=== PATIENT | female | born 1995 | race Caucasian/White ===

== ENCOUNTER 2019-04-11 01:46 | Emergency (ER) | payer MEDICAID, OTHER ==
[~2019-04-11] VITALS: Ht 170.2 cm; Wt 772.5 kg
--- NOTE | 2019-04-11 02:15 | NUR ---
JAYRO FROM [facility]. AAOX4. NAD, BREATHING IS EVEN AND UNLABORED. AMBULATORY. C/O RECTAL BLEEDING WHICH WAS NOTED 3 DAYS AGO WHICH STARTED AN ABDOMINAL 1 WEEK AGO. PT REPORT BLEEDING PROGRESSIVELY GETTING WORST EVERYDAY AND DESCRIBES IF SHE WAS HAVING HER PERIOD. ALSO COMPLAINING OF LLQ ABDIMINAL PAIN X 3DAYS AGO. PT REPORTS NAUSEA NO VOMITING NOTED. NO DIARRHEA. TO ER BED 3. MD AT BEDSIDE WITH CHARGE NURSE FOR EVAL. AWAITING ORDERS
[2019-04-11] MEDS ORDERED: HYDROMORPHONE 1 MG/1 ML DISP.SYRIN ONE ×2 (02:39→04:07)
[2019-04-11] MEDS ORDERED: ONDANSETRON HCL/PF 4 MG/2 ML VIAL ONE (02:39)
[2019-04-11] MEDS ORDERED: IOHEXOL-300 100 ML VIAL IV ONE ×2 (02:43→03:19)
[2019-04-11] MEDS ORDERED: CT SWABBABLE VALVE TRANS SET 1 EA INFUS.SET MC ONE ×2 (02:43→03:19)
[2019-04-11] MEDS ORDERED: IV NS 0.9% 0 ML IV ONE (02:43)
--- NOTE | 2019-04-11 02:45 | NUR ---
IV LINE OBTAINED ON LFA 20G. BLOOD DRAWN AND GIVEN TO TECH AT BEDSIDE
[2019-04-11 02:53] LABS: BASOPHILS # (AUTO) 0.1 /CMM (0.0-0.2); BASOPHILS % (AUTO) 0.6 % (0.0-2.0); EOSINOPHILS % (AUTO) 1.1 % (0.0-6.0); HEMATOCRIT 39 % (33-45); HEMOGLOBIN 13.2 g/dL (11.5-14.8); LYMPHOCYTES # (AUTO) 2.8 /CMM (0.8-4.8); LYMPHOCYTES % (AUTO) 30.9 % (20.0-44.0); MEAN CORPUSCULAR HGB CONC 34 g/dl (31.0-36.0); MEAN CORPUSCULAR VOLUME 86 fL (82-100); MONOCYTES # (AUTO) 0.5 /CMM (0.1-1.30); MONOCYTES % (AUTO) 5.1 % (2.0-12.0); NEUTROPHILS # (AUTO) 5.7 /CMM (1.8-8.9); NEUTROPHILS % (AUTO) 62.3 % (43.0-81.0); PLATELET COUNT (AUTO) 370 /CMM (150-450); RED BLOOD CELL COUNT(AUTO) 4.53 MIL/uL (4.0-5.2); WHITE BLOOD COUNT (AUTO) 9.2 K/uL (4.3-11.0)
[2019-04-11] MEDS ORDERED: HYDROMORPHONE INJ 2 MG/ML DISP.SYRIN IV ONE (03:00)
[2019-04-11] MEDS ORDERED: ONDANSETRON HCL/PF 4 MG/2 ML VIAL IVP ONE (03:00)
[2019-04-11 03:01] LABS: CALCIUM, SERUM 9.2 mg/dL (8.5-10.1); CREATININE 0.9 mg/dL (0.6-1.3)
[2019-04-11 03:06] LABS: ALBUMIN 3.6 g/dL (3.4-5.0); BILIRUBIN,TOTAL 0.2 mg/dL (0.2-1.0); TOTAL PROTEIN, SERUM 7.7 g/dL (6.4-8.2)
[2019-04-11] MEDS ORDERED: IV NS 0.9% 250 ML IV ONE (03:19)
--- NOTE | 2019-04-11 03:28 | NUR ---
PT AMBULATED TO BATHROOM W/ LIMP. URINE SPECIMEN COLLECTED, SENT OT LAB
--- NOTE | 2019-04-11 03:47 | NUR ---
PT GOING TO CT ON [facility]
--- NOTE | 2019-04-11 03:56 | NUR ---
BACK FROM CT
--- NOTE | 2019-04-11 04:09 | NUR ---
PT REPORTS THAT PAIN IS BACK RATE 7/10 SAME WHEN SHE CAME IN. PT GOT RELIEVED FROM 1ST DOSE. MD MADE AWARE. RECEIVED VERBAL ORDER TO GIVE ANOTHER DILAUDID 0.5MG IV X1.
[2019-04-11] MEDS ORDERED: HYDROMORPHONE 1 MG/1 ML DISP.SYRIN IV ONE (05:30)
--- NOTE | 2019-04-11 06:02 | NUR ---
Patient discharged to home in stable condition. Written and verbal after care instructions given. Patient verbalizes understanding of instruction.IV removed. Catheter intact and site benign. Pressure and 4x4 applied to site. No bleeding noted. Pt ambulatory with a steady gait
[2019-04-11 06:04] VITALS: BP 129/81
== END 2019-04-11 06:05 | disposition home or self-care (01) ==
LOC: ER 01:52
DX: K92.2 Gastrointestinal hemorrhage, unspecified (principal); N83.202 Unspecified ovarian cyst, left side; F10.10 Alcohol abuse, uncomplicated; F17.200 Nicotine dependence, unspecified, uncomplicated; Y90.9 Presence of alcohol in blood, level not specified
CPT/HCPCS: 36415; 74177; 80048; 80076; 83690; 84703; 85025; 85730; 96374; 96375; 96376; 99284; J1170 ×2; J2405; J7050; Q9967

== ENCOUNTER 2020-08-14 15:11 | Emergency (ER) | payer MEDICAID ==
[~2020-08-14] VITALS: Ht 170.2 cm; Wt 90.7 kg
--- NOTE | 2020-08-14 15:14 | NUR ---
ER BED 4 PT CAME IN C/O OF ABD PAIN 04/16 AND DIARRHEA SINCE 08/07/20. PT STATED SHE LOST SOME WEIGHT FROM HAVING DIARRHEA AND STATES THAT HER ABD STARTS HURTING 08/16 WHEN SHE EATS. VS CHECKED. AWAITING MD PERKINS
--- NOTE | 2020-08-14 15:30 | NUR ---
PT STATED SHES READY TO PEE. URINE COLLECTED.
--- NOTE | 2020-08-14 15:45 | NUR ---
IV INSERTED ON L AC G20. INTACT AND PATENT AND FLUSHING WELL.
[2020-08-14] MEDS ORDERED: MORPHINE SULFATE INJ 4 MG/ML DISP.SYRIN ONE (16:15)
[2020-08-14] MEDS ORDERED: ONDANSETRON HCL/PF 4 MG/2 ML VIAL ONE (16:16)
[2020-08-14] MEDS: MORPHINE SULFATE INJ 2 MG/ML DISP.SYRIN IV ONE (16:20)
[2020-08-14] MEDS: ONDANSETRON HCL/PF 4 MG/2 ML VIAL IVP ONE (16:20)
[2020-08-14] MEDS: IV NS 0.9% 1,000 ML BAG IV ONE (16:20)
[2020-08-14 16:27] LABS: APPEARANCE,URINE Clear (CLEAR); BILIRUBIN,URINE SMALL (NEGATIVE); BLOOD, URINE Trace-intact Ery/uL (NEGATIVE); COLOR,URINE Yellow (YELLOW); KETONES,URINE 40 (NEGATIVE); LEUKOCYTE ESTERASE ,URINE Negative (NEGATIVE); NITRITE, URINE Negative (NEGATIVE); PH,URINE 6.5 (5.0-8.0); PROTEIN,URINE Negative (NEGATIVE); UGLUCOSE Negative (NEGATIVE); UROBILINOGEN,URINE 0.2 EU/dL (0.2)
[2020-08-14 16:41] LABS: CALCIUM, SERUM 9.4 mg/dL (8.5-10.1); CREATININE 0.8 mg/dL (0.6-1.3); POTASSIUM 3.8 mmol/L (3.5-5.1)
[2020-08-14 16:43] LABS: BASOPHILS # (AUTO) 0.1 /CMM (0.0-0.2); BASOPHILS % (AUTO) 1.1 % (0.0-2.0); EOSINOPHILS % (AUTO) 2.1 % (0.0-6.0); HEMATOCRIT 41 % (33-45); HEMOGLOBIN 13.6 g/dL (11.5-14.8); LYMPHOCYTES # (AUTO) 2.2 /CMM (0.8-4.8); LYMPHOCYTES % (AUTO) 22.1 % (20.0-44.0); MEAN CORPUSCULAR HGB CONC 33 g/dl (31.0-36.0); MEAN CORPUSCULAR VOLUME 85 fL (82-100); MONOCYTES # (AUTO) 0.6 /CMM (0.1-1.30); MONOCYTES % (AUTO) 5.7 % (2.0-12.0); NEUTROPHILS # (AUTO) 6.9 /CMM (1.8-8.9); PLATELET COUNT (AUTO) 431 /CMM (150-450); RED BLOOD CELL COUNT(AUTO) 4.83 MIL/uL (4.0-5.2); WHITE BLOOD COUNT (AUTO) 10.1 K/uL (4.3-11.0)
[2020-08-14 16:46] LABS: ALBUMIN 3.6 g/dL (3.4-5.0); BILIRUBIN,DIRECT 0.1 mg/dL (0.0-0.2); BILIRUBIN,TOTAL 0.3 mg/dL (0.2-1.0)
[2020-08-14 17:01] LABS: BACTERIA,URINE None seen /HPF (None Seen); SQUAMOUS EPITHELIAL CELL,UR Many /HPF (None Seen); WBC,URINE 0-2 /HPF (0-3)
--- NOTE | 2020-08-14 17:27 | NUR ---
IV FLUIDS STILL RUNNING CURRENTLY.
--- NOTE | 2020-08-14 17:35 | NUR ---
D/C Patient discharged to home in stable condition. Written and verbal after care instructions given. Patient verbalizes understanding of instruction. IV removed. Catheter intact and site benign. Pressure and 4x4 applied to site. No bleeding noted.
[2020-08-14 17:36] VITALS: BP 120/81
== END 2020-08-14 17:36 | disposition home or self-care (01) ==
LOC: ER 15:15
DX: R11.2 Nausea with vomiting, unspecified (principal); R19.7 Diarrhea, unspecified; R10.30 Lower abdominal pain, unspecified
CPT/HCPCS: 36415; 74176; 80048; 80076; 81001; 83690; 84703; 85025; 96361; 96374; 96375; 99284; J2270; J2405; 81000-TC

== ENCOUNTER 2020-09-11 11:23 | Emergency (ER) | payer MEDICAID ==
[~2020-09-11] VITALS: Ht 170.2 cm; Wt 85.7 kg
--- NOTE | 2020-09-11 11:30 | NUR ---
"Abdominal Pain x1mo was seen here and told infected lymph nodes BUT not better. +N/V/Change in BM/lost weight/not able to tolerate food" Patient a/ox4, breathing even and unlabored, no sob noted, needs attended.
[2020-09-11 12:05] LABS: APPEARANCE,URINE Clear (CLEAR); BILIRUBIN,URINE Negative (NEGATIVE); BLOOD, URINE Negative Ery/uL (NEGATIVE); COLOR,URINE Yellow (YELLOW); LEUKOCYTE ESTERASE ,URINE Negative (NEGATIVE); NITRITE, URINE Negative (NEGATIVE); PROTEIN,URINE Negative (NEGATIVE); UGLUCOSE Negative (NEGATIVE); UROBILINOGEN,URINE 0.2 EU/dL (0.2)
[2020-09-11 12:07] LABS: BASOPHILS % (AUTO) 0.6 % (0.0-2.0); EOSINOPHILS % (AUTO) 2.2 % (0.0-6.0); HEMATOCRIT 39 % (33-45); HEMOGLOBIN 12.8 g/dL (11.5-14.8); LYMPHOCYTES # (AUTO) 1.9 /CMM (0.8-4.8); LYMPHOCYTES % (AUTO) 25.8 % (20.0-44.0); MEAN CORPUSCULAR HGB CONC 33 g/dl (31.0-36.0); MEAN CORPUSCULAR VOLUME 86 fL (82-100); MONOCYTES # (AUTO) 0.4 /CMM (0.1-1.30); NEUTROPHILS # (AUTO) 4.9 /CMM (1.8-8.9); NEUTROPHILS % (AUTO) 66.4 % (43.0-81.0); PLATELET COUNT (AUTO) 342 /CMM (150-450); RED BLOOD CELL COUNT(AUTO) 4.54 MIL/uL (4.0-5.2); WHITE BLOOD COUNT (AUTO) 7.3 K/uL (4.3-11.0)
[2020-09-11 12:19] LABS: ALBUMIN 3.3 g/dL (3.4-5.0); BILIRUBIN,DIRECT 0.1 mg/dL (0.0-0.2); BILIRUBIN,TOTAL 0.2 mg/dL (0.2-1.0); CALCIUM, SERUM 9.3 mg/dL (8.5-10.1); CREATININE 0.7 mg/dL (0.6-1.3); POTASSIUM 3.4 mmol/L (3.5-5.1); TOTAL PROTEIN, SERUM 7.3 g/dL (6.4-8.2)
[2020-09-11] MEDS ORDERED: KETOROLAC TROMETHAMINE INJ 60 MG/2 ML VIAL IM ONE (13:00)
[2020-09-11] MEDS ORDERED: KETOROLAC TROMETHAMINE INJ 30 MG/ML VIAL ONE (13:09)
--- NOTE | 2020-09-11 13:23 | NUR ---
Patient discharged to home in stable condition. Written and verbal after care instructions given. Patient verbalizes understanding of instruction.
[2020-09-11 13:24] VITALS: BP 110/76
== END 2020-09-11 13:24 | disposition home or self-care (01) ==
LOC: ER 11:27
DX: R10.84 Generalized abdominal pain (principal); R10.32 Left lower quadrant pain; F17.200 Nicotine dependence, unspecified, uncomplicated
CPT/HCPCS: 36415; 80048; 80076; 81001; 83690; 84703; 85025; 96372; 99283; J1885; 81000-TC

== ENCOUNTER → 2021-08-14 | Emergency (ER) | payer MEDICAID ==
[~2021-08-14] VITALS: Ht 170.2 cm; Wt 77.1 kg
[~2021-08-14] MED LIST: IV LR 1000 ML 1,000 ML IV ONE; IV NS 0.9% 500 ML BAG IV ONE; LORAZEPAM INJ 2 MG/ML VIAL IV ONE; LORAZEPAM INJ 2 MG/ML VIAL ONE; ONDANSETRON HCL/PF 4 MG/2 ML VIAL IVP ONE; ONDANSETRON HCL/PF 4 MG/2 ML VIAL ONE; PIPERACILLIN /TAZOBACTAM 3.375 G in IV D5W 50 ML IV ONE
--- NOTE | 2021-08-14 17:21 | NUR ---
DR CASTILLO ASSESSING THE PATIENT.
--- NOTE | 2021-08-14 17:30 | NUR ---
Patient came in to the er c/o "Started having pain chest/epigastric/nausea/vomiting around 1pm". On room air, breathing evenly and unlabored. Connected to the monitor and pulse ox. kept comfortable, will continue lety onitor accordingly.
[2021-08-14 18:08] LABS: BASOPHILS # (AUTO) 0.1 K/uL (0.0-0.2); BASOPHILS % (AUTO) 0.5 % (0.0-2.0); EOSINOPHILS % (AUTO) 0.5 % (0.0-6.0); HEMATOCRIT 41 % (33-45); HEMOGLOBIN 13.5 g/dL (11.5-14.8); LYMPHOCYTES # (AUTO) 1.7 K/uL (0.8-4.8); LYMPHOCYTES % (AUTO) 11.5 % (20.0-44.0); MEAN CORPUSCULAR HGB CONC 33 g/dl (31.0-36.0); MEAN CORPUSCULAR VOLUME 88 fL (82-100); MONOCYTES # (AUTO) 0.5 K/uL (0.1-1.30); MONOCYTES % (AUTO) 3.6 % (2.0-12.0); NEUTROPHILS # (AUTO) 12.6 K/uL (1.8-8.9); NEUTROPHILS % (AUTO) 83.9 % (43.0-81.0); RED BLOOD CELL COUNT(AUTO) 4.65 MIL/uL (4.0-5.2)
--- NOTE | 2021-08-14 18:21 | NUR ---
urine collected and sent to lab.
[2021-08-14 18:35] LABS: CALCIUM, SERUM 9.2 mg/dL (8.5-10.1); CARBON DIOXIDE 25 mmol/L (21-32); CHLORIDE 102 mmol/L (98-107); CREATININE 1.1 mg/dL (0.6-1.3); GLUCOSE 125 mg/dL (74-106); POTASSIUM 3.6 mmol/L (3.5-5.1); SODIUM SERUM 137 mmol/L (136-145); UREA NITROGEN, BLOOD 13 mg/dL (7-18)
[2021-08-14 18:48] LABS: ALANINE AMINOTRANSFERASE 142 U/L (12-78); ALBUMIN 3.6 g/dL (3.4-5.0); ALKALINE PHOSPHATASE 97 U/L (46-116); ASPARTATE AMINOTRANSFERASE 202 U/L (15-37); BILIRUBIN,DIRECT 0.1 mg/dL (0.0-0.2); BILIRUBIN,TOTAL 0.3 mg/dL (0.2-1.0); TOTAL PROTEIN, SERUM 7.7 g/dL (6.4-8.2)
[2021-08-14 19:02] LABS: BILIRUBIN,URINE NEGATIVE (NEGATIVE); COLOR,URINE YELLOW (YELLOW); LEUKOCYTE ESTERASE ,URINE NEGATIVE (NEGATIVE); NITRITE, URINE NEGATIVE (NEGATIVE); PH,URINE 6.5 (5.0-8.0); PROTEIN,URINE NEGATIVE (NEGATIVE); UGLUCOSE NEGATIVE (NEGATIVE)
[2021-08-14 19:21] LABS: PLATELET COUNT (AUTO) 411 K/uL (150-450)
[2021-08-14 19:24] LABS: BACTERIA,URINE 2+ /HPF (None Seen); RBC,URINE 0-2 /HPF (0-2)
--- NOTE | 2021-08-14 21:34 | NUR ---
PATIENT DISCAHRGED IN STABLE CONDITION
[2021-08-14 21:40] VITALS: BP 128/79
== END | disposition home or self-care (01) ==
LOC: ER 17:14
DX: R10.9 Unspecified abdominal pain (principal); R07.89 Other chest pain; R06.02 Shortness of breath; F41.9 Anxiety disorder, unspecified; F12.90 Cannabis use, unspecified, uncomplicated
CPT/HCPCS: 36415; 71045; 76705; 80048; 80076; 81001; 83605; 83690; 84484; 84703; 85025; 87040 ×2; 87086; 93005 ×3; 96365; 96375; 99285; J2060; J2405; J2543; J7040; J7060; J7120 ×2

== ENCOUNTER 2021-08-15 10:39 | Emergency (ER) | payer MEDICAID ==
[~2021-08-15] VITALS: Ht 170.2 cm; Wt 81.2 kg
[2021-08-15 10:48] VITALS: BP 110/74
--- NOTE | 2021-08-15 10:50 | NUR ---
PT BIB SELF FOR RE-EVAL,SEEN YESTERDAY FOR ABDOMINAL PAIN/GALLSTONE. PT VERBALIZED PAIN IMPROVED. STABLE ON ROOM AIR. DENIES PAIN AT THIS TIME. Alert and oriented. kept comfortable in bed. safety measures in place
--- NOTE | 2021-08-15 11:09 | NUR ---
Patient discharged to home in stable condition. Written and verbal after care instructions given. Patient verbalizes understanding of instruction.
== END 2021-08-15 11:09 | disposition home or self-care (01) ==
LOC: ER 10:44
DX: R10.9 Unspecified abdominal pain (principal); F41.9 Anxiety disorder, unspecified; F12.90 Cannabis use, unspecified, uncomplicated

== ENCOUNTER 2021-09-24 19:48 | Emergency (ER) | payer MEDICAID ==
[~2021-09-24] VITALS: Ht 170.2 cm; Wt 76.2 kg
--- NOTE | 2021-09-24 20:32 | NUR ---
PATIENT TO ER BED 6 BIBSELF C/O MID EPIGASTRIC PAIN THAT RADIATES TO THE BACK HAS BEEN CHRONIC BUT WORSENING TODAY. PATIENT STATES THAT THE PAIN OCCURS WHEN SHE EATS FOOD. SHE USUALLY TAKES TYLENOL AT HOME, TAKES A BATH, AND GOES TO SLEEP FOR PAIN. PT ALERT AND ORIENTED X4. DENIES SHORTNESS OF BREATH. CONNECTED TO THE MONITOR.
--- NOTE | 2021-09-24 20:44 | NUR ---
ULTRASOUND AT BEDSIDE.
--- NOTE | 2021-09-24 20:50 | NUR ---
BLOOD COLLECTED AND SENT TO THE LAB.
[2021-09-24] MEDS ORDERED: MORPHINE SULFATE INJ 2 MG/ML DISP.SYRIN IV ONE (21:00)
[2021-09-24] MEDS ORDERED: IV NS 0.9% 1,000 ML BAG IV ONE (21:00)
[2021-09-24] MEDS ORDERED: ONDANSETRON HCL/PF 4 MG/2 ML VIAL IVP ONE (21:00)
[2021-09-24] MEDS ORDERED: ONDANSETRON HCL/PF 4 MG/2 ML VIAL ONE (21:07)
[2021-09-24] MEDS ORDERED: MORPHINE SULFATE INJ 4 MG/ML DISP.SYRIN ONE (21:07)
[2021-09-24 21:28] LABS: BASOPHILS % (AUTO) 0.3 % (0.0-2.0); EOSINOPHILS % (AUTO) 0.6 % (0.0-6.0); HEMATOCRIT 40 % (33-45); HEMOGLOBIN 13.4 g/dL (11.5-14.8); LYMPHOCYTES # (AUTO) 1.8 K/uL (0.8-4.8); LYMPHOCYTES % (AUTO) 12.3 % (20.0-44.0); MEAN CORPUSCULAR HGB CONC 33 g/dl (31.0-36.0); MEAN CORPUSCULAR VOLUME 87 fL (82-100); MONOCYTES # (AUTO) 0.6 K/uL (0.1-1.30); MONOCYTES % (AUTO) 4.2 % (2.0-12.0); NEUTROPHILS # (AUTO) 12.2 K/uL (1.8-8.9); NEUTROPHILS % (AUTO) 82.6 % (43.0-81.0); PLATELET COUNT (AUTO) 469 K/uL (150-450); RED BLOOD CELL COUNT(AUTO) 4.63 MIL/uL (4.0-5.2); WHITE BLOOD COUNT (AUTO) 14.8 K/uL (4.3-11.0)
[2021-09-24 21:35] LABS: BILIRUBIN,URINE NEGATIVE (NEGATIVE); COLOR,URINE YELLOW (YELLOW); LEUKOCYTE ESTERASE ,URINE NEGATIVE (NEGATIVE); NITRITE, URINE NEGATIVE (NEGATIVE); PH,URINE 6.5 (5.0-8.0); PROTEIN,URINE NEGATIVE (NEGATIVE); UGLUCOSE NEGATIVE (NEGATIVE); UROBILINOGEN,URINE 0.2 EU/dL (0.2)
[2021-09-24 21:44] LABS: RBC,URINE 0-2 /HPF (0-2); WBC,URINE 0-2 /HPF (0-3)
[2021-09-24 21:45] LABS: BACTERIA,URINE 1+ /HPF (None Seen); MUCUS,URINE Many /LPF (None Seen); SQUAMOUS EPITHELIAL CELL,UR 0-2 /HPF (None Seen)
[2021-09-24 21:58] LABS: ALBUMIN 3.5 g/dL (3.4-5.0); BILIRUBIN,DIRECT 0.2 mg/dL (0.0-0.2); BILIRUBIN,TOTAL 0.3 mg/dL (0.2-1.0); CREATININE 1.1 mg/dL (0.6-1.3); POTASSIUM 3.5 mmol/L (3.5-5.1); TOTAL PROTEIN, SERUM 8.1 g/dL (6.4-8.2)
--- NOTE | 2021-09-24 22:50 | NUR ---
PATIENT IS PO CHALLENGED PER MD'S VERBAL ORDER.
--- NOTE | 2021-09-24 23:07 | NUR ---
PATIENT TOLERATES WATER. MD NOTIFIED. OKAY TO DISCHARGE PATIENT.
--- NOTE | 2021-09-24 23:16 | NUR ---
Patient discharged to home in stable condition. Written and verbal after care instructions given. Patient verbalizes understanding of instruction.
--- NOTE | 2021-09-24 23:16 | NUR ---
IV removed. Catheter intact and site benign. Pressure and 4x4 applied to site. No bleeding noted.
--- NOTE | 2021-09-24 23:19 | NUR ---
PATIENT IS PICKED UP BY FRIEND.
[2021-09-24 23:20] VITALS: BP 109/71
== END 2021-09-24 23:21 | disposition home or self-care (01) ==
LOC: ER 20:02
DX: K80.20 Calculus of gallbladder without cholecystitis without obstruction (principal); R10.13 Epigastric pain; R11.2 Nausea with vomiting, unspecified; F12.90 Cannabis use, unspecified, uncomplicated
CPT/HCPCS: 36415; 76705; 80048; 80076; 81001; 83690; 84703; 85025; 96361; 96374; 96375; 99284; J2270; J2405; J7030

== ENCOUNTER 2022-01-31 12:45 | Emergency (ER) | payer MEDICAID ==
[~2022-01-31] VITALS: Ht 170.2 cm; Wt 74.4 kg
--- NOTE | 2022-01-31 12:59 | NUR ---
TO ER BED 9. BIB SELF C/O L SIDED ABDOMINAL PAIN X 2 DAYS GALL BLADDER REMOVED JANUARY 05 BY AT [facility], HAD CHECK UP ON JANUARY 20 AND HAD NO PAIN. INCISION SITE IS HEALED. PT STATING THAT HER PAIN IS CURRENTLY IS 6/10 AND WHEN SHE MOVES IS 10/10.
--- NOTE | 2022-01-31 13:10 | NUR ---
IV ESTABLIHSED R AC 20G. LABS DRAWN AND COLLECTED. CONVERTED TO SALINE LOCK.
--- NOTE | 2022-01-31 13:14 | NUR ---
URINE COLLECTED AND SENT
[2022-01-31] MEDS: IV NS 0.9% 1,000 ML BAG IV ONE (13:21)
[2022-01-31 13:34] LABS: BASOPHILS % (AUTO) 0.4 % (0.0-2.0); EOSINOPHILS % (AUTO) 1.8 % (0.0-6.0); HEMATOCRIT 41 % (33-45); HEMOGLOBIN 13.3 g/dL (11.5-14.8); LYMPHOCYTES # (AUTO) 2.1 K/uL (0.8-4.8); LYMPHOCYTES % (AUTO) 28.4 % (20.0-44.0); MEAN CORPUSCULAR HGB CONC 32 g/dl (31.0-36.0); MEAN CORPUSCULAR VOLUME 87 fL (82-100); MONOCYTES # (AUTO) 0.4 K/uL (0.1-1.30); MONOCYTES % (AUTO) 5.4 % (2.0-12.0); NEUTROPHILS # (AUTO) 4.8 K/uL (1.8-8.9); PLATELET COUNT (AUTO) 356 K/uL (150-450); RED BLOOD CELL COUNT(AUTO) 4.75 MIL/uL (4.0-5.2); WHITE BLOOD COUNT (AUTO) 7.5 K/uL (4.3-11.0)
[2022-01-31 13:36] LABS: BILIRUBIN,URINE NEGATIVE (NEGATIVE); COLOR,URINE YELLOW (YELLOW); LEUKOCYTE ESTERASE ,URINE NEGATIVE (NEGATIVE); NITRITE, URINE NEGATIVE (NEGATIVE); PROTEIN,URINE NEGATIVE (NEGATIVE); UGLUCOSE NEGATIVE (NEGATIVE); UROBILINOGEN,URINE 0.2 EU/dL (0.2)
[2022-01-31] MEDS ORDERED: KETOROLAC TROMETHAMINE INJ 30 MG/ML VIAL ONE (13:47)
[2022-01-31 13:49] LABS: ALBUMIN 3.6 g/dL (3.4-5.0); BILIRUBIN,DIRECT 0.1 mg/dL (0.0-0.2); BILIRUBIN,TOTAL 0.2 mg/dL (0.2-1.0); CALCIUM, SERUM 9.2 mg/dL (8.5-10.1); POTASSIUM 3.8 mmol/L (3.5-5.1); TOTAL PROTEIN, SERUM 7.6 g/dL (6.4-8.2)
[2022-01-31 13:49] LABS: BACTERIA,URINE Few /HPF (None Seen); RBC,URINE 0-2 /HPF (0-2)
[2022-01-31] MEDS: KETOROLAC TROMETHAMINE INJ 30 MG/ML VIAL IV ONE (13:52)
--- NOTE | 2022-01-31 13:58 | NUR ---
PT TAKEN TO CT VIA [facility]
--- NOTE | 2022-01-31 16:39 | NUR ---
Patient discharged to home in stable condition. Written and verbal after care instructions given. Patient verbalizes understanding of instruction.IV removed. Catheter intact and site benign. Pressure and 4x4 applied to site. No bleeding noted.
[2022-01-31 16:40] VITALS: BP 119/74
== END 2022-01-31 16:40 | disposition home or self-care (01) ==
LOC: ER 12:46
DX: G89.18 Other acute postprocedural pain (principal); F17.200 Nicotine dependence, unspecified, uncomplicated; Z90.89 Acquired absence of other organs
CPT/HCPCS: 36415; 74176; 80048; 80076; 81001; 83690; 84703; 85025; 87086; 96361; 96374; 99284; J1885; J7030